=== PATIENT | male | born 1995 | race Caucasian/White ===

== ENCOUNTER 2017-03-29 11:07 | Emergency (ER) | payer OTHER ==
[2017-03-29 11:14] VITALS: BP 125/82
[2017-03-29] MEDS ORDERED: Ibuprofen TAB* 400 MG PO ONE (11:54)
[2017-03-29] MEDS ORDERED: Cyclobenzaprine TAB* 10 MG PO ONE (11:54)
--- NOTE | 2017-03-29 12:17 | RAD ---
INDICATION: Pleuritic chest pain COMPARISON: None TECHNIQUE: PA and lateral dual-energy views were obtained. FINDINGS: Bones/Soft Tissues: There are no acute bony findings. Cardiomediastinal: The cardiomediastinal silhouette is normal. Lungs: There are no infiltrates. There is no pneumothorax. Pleura: There are no pleural effusions. Other: None IMPRESSION: NEGATIVE EXAMINATION.
--- NOTE | 2017-03-31 12:09 | ED ---
Igor Foster Nilda, scribed for Richy Hodgson MD on 03/29/17 at 1154 . Back Pain - HPI Summary HPI Summary: This patient is a 21 year old M presenting to [facility] with a chief complaint of constant sharp lower back pain that radiates to upper back s/p lifting his guitar earlier today. The patient rates the pain 5/10 in severity. Symptoms aggravated by movement and deep inspiration. Symptoms alleviated by rest. Patient denies cough. - History of Current Complaint Chief Complaint: EDBackInjuryPain Stated Complaint: BACK PAIN Time Seen by Provider: 03/29/17 11:44 Hx Obtained From: Patient Onset/Duration: Sudden Onset, Lasting Hours Onset/Duration: Started Hours Ago Timing: Constant Back Pain Location: Is Discrete @ - lower back, Radiates To - upper back Severity Currently: Moderate Pain Intensity: 5 Pain Scale Used: 0-10 Numeric Character: Sharp Aggravating Symptom(s): Movement, Other - deep inspiration Alleviating Symptom(s): Rest Associated Signs And Symptoms: Positive: Other - negative cough - Allergies/Home Medications Allergies/Adverse Reactions: Allergies Allergy/AdvReac Type Severity Reaction Status Date / Time No Known Allergies Allergy Verified 03/29/17 11:13 PMH/Surg Hx/FS Hx/Imm Hx Sensory History: Denies: Hx Legally Blind EENT History: Denies: Hx Deafness Infectious Disease History: No Infectious Disease History: Denies: Traveled Outside the [place] in Last 30 Days - Family History Known Family History: Negative: Hypertension, Diabetes - Social History Alcohol Use: Occasionally Substance Use Type: Reports: None Smoking Status (MU): Never Smoked Tobacco Review of Systems Negative: Fever, Chills Negative: Erythema Negative: Sore Throat Negative: Chest Pain Negative: Shortness Of Breath, Cough Negative: Abdominal Pain, Vomiting, Nausea Negative: dysuria, hematuria Positive: Other - lower back pain and upper back pain. Negative: Myalgia, Edema Negative: Rash Neurological: Other - negative dizziness All Other Systems Reviewed And Are Negative: Yes Physical Exam - Summary Physical Exam Summary: Constitutional: Well-developed, Well-nourished, Alert. (-) Distressed Skin: Warm, Dry HENT: Normocephalic; Atraumatic Eyes: Conjunctiva normal Neck: Musculoskeletal ROM normal neck. (-) JVD, (-) Stridor, (-) Tracheal deviation Cardio: Rhythm regular, rate normal, Heart sounds normal; Intact distal pulses; The pedal pulses are 2+ and symmetric. Radial pulses are 2+ and symmetric. (-) Murmur Pulmonary/Chest wall: Diminished breath sounds (-) Wheezes, (-) Rales Abd: Soft, (-) Tenderness, (-) Distension, (-) Guarding, (-) Rebound Musculoskeletal: (-) Edema Lymph: (-) Cervical adenopathy Neuro: Alert, Oriented x3 Psych: Mood and affect Normal Triage Information Reviewed: Yes Vital Signs On Initial Exam: Initial Vitals Temp Pulse Resp BP Pulse Ox 98.8 F 73 16 125/82 100 03/29/17 11:12 03/29/17 11:12 03/29/17 11:12 03/29/17 11:12 03/29/17 11:12 Vital Signs Reviewed: Yes - [place] Coma Scale Coma Scale Total: 15 Diagnostics - Vital Signs Vital Signs Temp Pulse Resp BP Pulse Ox 03/29/17 11:12 98.8 F 73 16 125/82 100 - Laboratory Lab Statement: Any lab studies that have been ordered have been reviewed, and results considered in the medical decision making process. - Radiology CXR Radiology Interpretation Completed By: Radiologist - Negative examination. ED physician has reviewed this radiology report and agrees. Back Pain Course/Dx - Course Course Of Treatment: This patient is a 21 year old M presenting to [facility] with a chief complaint of sharp lower back pain that radiates to upper back s/p lifting his guitar earlier today. The patient rates the pain 5/10 in severity. Symptoms aggravated by movement and deep inspiration. Symptoms alleviated by rest. Patient denies cough. He is PERC score negative. CXR, per radiologist, reveals negative examination. ED physician has reviewed this radiology report and agrees. Patient will be discharged with a diagnosis of strain of the thoracic region with prescriptions for lidocaine and naproxen. He was advised to follow up with [facility] in 2-3 days. The patient is agreeable with this plan. - Diagnoses Provider Diagnoses: Strain of thoracic region Discharge - Discharge Plan Condition: Stable Disposition: HOME Prescriptions: Lidocaine PATCH 5%* [Lidoderm 5% Patch*] 1 patch TRANSDERM DAILY #7 patch Naproxen TAB* [Naprosyn 250 mg TAB*] 500 mg PO Q8H PRN #20 tab PRN Reason: Pain - Moderate To Severe Patient Education Materials: Thoracic Back Strain (ED) [facility] - [facility] Days Additional Instructions: RETURN TO THE EMERGENCY DEPARTMENT FOR CHANGING OR WORSENING SYMPTOMS. The documentation as recorded by the Igor page Nilda accurately reflects the service I personally performed and the decisions made by , Richy Hodgson MD.
== END 2017-03-29 12:47 | disposition home or self-care (01) ==
LOC: ED 11:07
DX: S29.012A Strain of muscle and tendon of back wall of thorax, initial encounter (principal); X50.0XXA Overexertion from strenuous movement or load, initial encounter; X50.9XXA Other and unspecified overexertion or strenuous movements or postures, initial encounter; Y93.89 Activity, other specified; Y92.9 Unspecified place or not applicable
CPT/HCPCS: 71020; 99282; A9270-GY